=== PATIENT | female | born 1960 | race Caucasian/White ===

== ENCOUNTER 2018-02-20 18:55 | Emergency (ER) | payer OTHER ==
[~2018-02-20] VITALS: Ht 167.6 cm; Wt 68.0 kg
[~2018-02-20 18:55] MED LIST: ALPRAZOLAM1 M2 PO; DIVALPROEX SOD500 M3 PO; ESCITALOPRAM OX20 MG PO; FLEXERIL10 MG PO; IBU800 MG PO; QUETIAPINE FUMA50 M1 PO; TRAZODONE HCL50 M1 PO; VICODIN5-300 PO
--- NOTE | 2018-02-20 19:59 | ED PSYCHIATRIC COMPLAINT ---
History of Present Illness General Chief Complaint: Psychiatric Related Complaint Stated Complaint: "I'M ON THE VERGE OF A NERVOUS BREAKDOWN" -SI Source: patient, old records Exam Limitations: no limitations Vital Signs & Intake/Output Vital Signs & Intake/Output Vital Signs Date Time Temp Pulse Resp B/P B/P Pulse O2 O2 Flow FiO2 Mean Ox Delivery Rate 02/21 0621 98.1 83 18 98/58 98 Room Air 02/21 0210 97.1 69 18 100/61 97 Room Air 02/20 2101 97.3 61 18 96/52 95 Room Air 02/20 1936 Room Air 02/20 1919 98.3 73 18 113/82 98 Room Air ED Intake and Output 02/21 0000 02/20 1200 Intake Total Output Total 100 Balance -100 Output, Urine 100 Patient 150 lb Weight Weight Reported by Patient Measurement Method Allergies Coded Allergies: Penicillins (Mild, UNKNOWN - PER PT DOES NOT REMEMBER, WAS WHEN SHE WAS A KID ) Reconcile Medications Alprazolam 1 MG TABLET 1 TAB PO DAILY ANXIETY (Reported) Cholecalciferol (Vitamin D3) (Vitamin D) 1,000 UNIT TABLET 1 TAB PO DAILY SUPPLEMENT (Reported) Cyanocobalamin (Vitamin B-12) (Unknown Strength) TABLET (Unknown Dose) PO QAM MENTAL HEALTH (Reported) Divalproex Sodium (Divalproex Sodium ER) 500 MG TAB.ER.24H 2 TAB PO QPM MOOD (Reported) Divalproex Sodium (Divalproex Sodium ER) 500 MG TAB.ER.24H 1 TAB PO QAM MOOD (Reported) Escitalopram Oxalate 20 MG TABLET 1 TAB PO QAM MENTAL HEALTH (Reported) Ferrous Sulfate 325 MG (65 MG IRON) TABLET 1 TAB PO DAILY ANEMIA (Reported) Quetiapine Fumarate (Unknown Strength) TABLET (Unknown Dose) PO QPM MENTAL HEALTH/SLEEP (Reported) Trazodone HCl (Unknown Strength) TABLET (Unknown Dose) PO QPM MENTAL HEALTH/ SLEEP (Reported) Vitamin E Mixed (Vitamin E) (Unknown Strength) TABLET (Unknown Dose) PO DAILY SUPPLEMENT (Reported) Triage Note: 57 YO FEMALE BIBA TO TRIAGE. PT REPORTS "IM GOING TO HAVE A NERVOUS BREAKDOWN" STATES "ESTEPHANIE HAD ONE BEFORE AND I KNOW ONE IS COMING" STATES RECENT WEIGHT LOSS, REPORTS SHE BELIEVES SHE HAS ?CHRONS, STATSE IT RUNS AND HER FAMILY AND SHE HAS BEEN HAVING EXPLOSIVE DIRRHEA. REPORTS "MY MEDIACATION ISNT GETTING ABSORBED DUE TO IT" STATES SHE DOES SEE A THERAPIST. DENIES SI/HI. Triage Nurses Notes Reviewed? yes Onset: Last week Duration: week(s):, constant, continues in ED, getting worse Timing: recent history Severity: severe Associated Symptoms: anxiety, impaired concentration, insomnia LMP (ages 10-50): post menopausal : No Patient currently breastfeeds: No HPI: Over the last several weeks patient complains of chronic explosive diarrhea that is not improved with Pepto-Bismol or Imodium. She also complains of increasing depression and anxiety difficulty concentrating insomnia anorexia nightmares and feeling a nervous breakdown coming on. She denies fever chills vomiting chest pain cough shortness of breath headache dysuria rash bleeding suicidal ideation homicidal ideation hallucination. (Ritesh Shukla MD) Past History Travel History Traveled to [place] past 21 day No Medical History Any Pertinent Medical History? see below for history Neurological: NONE EENT: NONE Cardiovascular: NONE Respiratory: NONE Gastrointestinal: NONE Hepatic: NONE Renal: NONE Musculoskeletal: NONE Psychiatric: anxiety, bipolar disease, depression, SLEEP TRAUMA Endocrine: NONE Blood Disorders: NONE Cancer(s): NONE GIFT SHOP CLERK/Reproductive: NONE Surgical History Surgical History: BREAST LIFT TONSELECTOMY VENTRAL HERNIA SURGERY Psychosocial History What is your primary language [place] Tobacco Use: Current Daily Use Daily Tobacco Use Amount/Type: => 5 Cigarettes daily Family History Hx Contributory? No (Ritesh Shukla MD) Review of Systems Review of Systems Constitutional: Reports: see HPI, malaise, weakness. EENTM: Reports: no symptoms. Respiratory: Reports: no symptoms. Cardiovascular: Reports: no symptoms. GI: Reports: see HPI, diarrhea, nausea. Genitourinary: Reports: no symptoms. Musculoskeletal: Reports: no symptoms. Skin: Reports: no symptoms. Neurological/Psychological: Reports: no symptoms. Hematologic/Endocrine: Reports: no symptoms. Immunologic/Allergic: Reports: no symptoms. All Other Systems: Reviewed and Negative (Ritesh Shukla MD) Physical Exam Physical Exam General Appearance: well developed/nourished, alert, awake, anxious, moderate distress Head: atraumatic, normal appearance Eyes: Bilateral: normal appearance, PERRL, EOMI. Ears, Nose, Throat: normal pharynx, normal ENT inspection, hearing grossly normal Neck: normal inspection, supple Respiratory: normal breath sounds Cardiovascular: regular rate/rhythm Gastrointestinal: soft, non-tender Extremities: normal range of motion Neurological/Psychiatric: no motor/sensory deficits, awake, alert, anxious, depressed affect, oriented x 3 Appearance/Memory/Insight: impaired insight Behavoir/Eye Contact/Speech: cooperative, normal speech Thoughts/Hallucinations: no apparent hallucination Skin: intact, normal color, warm/dry SAD PERSONS Done? patient not suicidal (Vazquez BAÑUELOS,Ritesh) Progress Differential Diagnosis: drug intoxication, drug overdose, drug withdrawal, electrolyte abnormality, hypoglycemia Plan of Care: Orders Procedure Date/time Status Regular Diet 02/21 B Active URINE DRUG SCREEN FOR ER ONLY 02/20 1951 Complete MAGNESIUM 02/20 1951 Complete ETHANOL 02/20 1951 Complete DEPAKOTE LEVEL 02/20 1951 Complete COMPREHENSIVE METABOLIC PANEL 02/20 1951 Complete CBC WITHOUT DIFFERENTIAL 02/20 1951 Complete ED CRISIS PSYCH CONSULT 02/20 1951 Active Current Medications Sig/Gurpreet Start time Last Medication Dose Stop Time Status Admin Divalproex Sodium 1,000 MG QPM 02/21 2100 UNVr (Depakote ER) Divalproex Sodium 500 MG DAILY 02/21 09 UNVr (Depakote ER) Escitalopram Oxalate 20 MG DAILY 02/21 09 UNVr (Lexapro) Ferrous Sulfate 325 MG DAILY 02/21 09 UNVr (Feosol) Quetiapine Fumarate 50 MG QPM 02/20 2230 UNVr 02/20 (SEROquel) 223 Trazodone HCl 50 MG AT BEDTIME 02/20 2230 UNVr 02/20 (Desyrel) 223 Laboratory Tests 02/20/182049: Anion Gap 7, Estimated GFR > 60, BUN/Creatinine Ratio 16.0, Glucose 80, Calcium 9.2, Magnesium 1.9, Total Bilirubin 0.4, AST 16, ALT 23, Alkaline Phosphatase 38 , Total Protein 6.2 L, Albumin 3.5, Globulin 2.7, Albumin/Globulin Ratio 1.3, CBC w Diff NO MAN DIFF REQ, RBC 3.67 L, MCV 92.8, MCH 31.3 H, MCHC 33.7, RDW 12.2, MPV 8.0, Gran % 46.9, Lymphocytes % 42.5, Monocytes % 8.2, Eosinophils % 2.1, Basophils % 0.3, Absolute Granulocytes 4.7, Absolute Lymphocytes 4.3 H, Absolute Monocytes 0.8 H, Absolute Eosinophils 0.2, Absolute Basophils 0, Valproic Acid 43.6 L, Serum Alcohol < 10.0 02/20/181955: Urine Opiates Screen < 100, Methadone Screen 50, Barbiturate Screen < 60, Ur Phencyclidine Scrn < 6.00, Amphetamines Screen < 100, U Benzodiazepines Scrn > 800 H, Urine Cocaine Screen < 50, Urine Cannabis Screen < 5.00 02/20/181952: Valproic Acid Cancelled Hand-Off Endorsed To: Kulwinder Casarez MD Endorsed Time: 0700 Pending: consult (Vazquez BAÑUELOS,Ritesh) Comments: 02/21/2018 7:16:33 AM patient signed out to me by at shift exchange consultant. (Leida BAÑUELOS,Kulwinder Beck) Departure Departure Disposition: STILL A PATIENT Condition: Stable Clinical Impression Primary Impression: Bipolar disorder Referrals: Patient Has No Primary Care Dr Departure Forms: Customer Survey General Discharge Information (Ritesh Shukla MD)
[2018-02-20] MEDS ORDERED: FERROUS SULFAT325 M3 PO (20:08)
[2018-02-20] MEDS ORDERED: VITAMIN B-121000 MC3 PO (20:09)
[2018-02-20] MEDS ORDERED: VITAMIN D1000 UNIT PO (20:09)
[2018-02-20] MEDS ORDERED: VITAMIN E100 UNI2 PO (20:09)
[2018-02-20 20:58] LABS: ABSOLUTE BASOPHIL COUNT 0 /CUMM (0.0-0.2); ABSOLUTE EOSINOPHIL COUNT 0.2 /CUMM (0.0-0.7); ABSOLUTE GRANULOCYTE CT 4.7 /CUMM (1.4-6.5); ABSOLUTE LYMPH COUNT 4.3 /CUMM (1.2-3.4); ABSOLUTE MONOCYTE COUNT 0.8 /CUMM (0.10-0.60); BASOPHIL % 0.3 % (0.0-2.0); EOSINOPHIL % 2.1 % (0-5); GRANULOCYTE % 46.9 % (42.2-75.2); HEMATOCRIT 34.1 % (37-47); MEAN CORPUSCULAR HGB 31.3 PG (27.0-31.0); MEAN CORPUSCULAR HGB CONC 33.7 G/DL (33.0-37.0); MEAN CORPUSCULAR VOLUME 92.8 FL (81.0-99.0); PLATELET COUNT 256 /CUMM (130-400); RBC DISTRIBUTION WIDTH 12.2 % (11.5-14.5); RED BLOOD CELL CT 3.67 /CUMM (4.20-5.40); WHITE BLOOD CELL COUNT 10.1 /CUMM (4.8-10.8)
[2018-02-21 12:26] VITALS: BP 106/58
== END 2018-02-21 14:39 ==
LOC: ERH 18:55
PROVIDERS: Emergency Medicine
DX: F31.9 Bipolar disorder, unspecified (principal); R19.7 Diarrhea, unspecified; F32.9 Major depressive disorder, single episode, unspecified
CPT/HCPCS: 80307; G0480